=== PATIENT | female | born 1985 | race Hispanic/Latino ===

== ENCOUNTER 2017-10-19 16:29 | Outpatient (CLI) | payer SELFPAY ==
[2017-10-19 17:22] LABS: #Eosinphils 0.1 thou/uL (0.0-0.7); #Lymphocytes 2.7 thou/uL (1.20-3.40); #Monocytes 0.7 thou/uL (0.11-0.59); #Neutrophils 8.4 thou/uL (1.40-6.50); %Basophils 0.3 % (0.0-1.0); %Eosinophils 0.6 % (0.0-10.0); %Lymphocytes 22.5 % (21.0-51.0); %Monocytes 5.9 % (0.0-10.0); %Neutrophils 70.7 % (42.0-75.0); Hemoglobin 12.2 g/dL (12.0-16.0); Mean Corpuscular Hemoglobin 27.9 pg (27.0-31.0); Mean Corpuscular Volume 79.6 fL (78.0-98.0); Platelet Count 349 thou/uL (130-400); RBC Distribution Width 15.2 % (11.5-14.5); Red Blood Cell (RBC) Count 4.39 mill/uL (4.20-5.40); White Blood Cell (WBC) Count 11.8 thou/uL (4.8-10.8)
[2017-10-19 17:26] LABS: BHCG - Serum POSITIVE (NEGATIVE); Pregs Control Background? CLEAR/WHITE (CLR/WHITE); Pregs Control Bar Appear? YES (CONTROL BAR)
[2017-10-19 17:41] LABS: Anion Gap 12 mmol/L (10-20); BUN (Urea Nitrogen) 6 mg/dL (7.0-18.7); Calc. Creatinine Clearance 0 mL/min (70-130); Calcium 9.4 mg/dL (7.8-10.44); Carbon Dioxide 21 mmol/L (22-29); Chloride 105 mmol/L (98-107); Estimated GFR-MDRD Greater than 90; Glucose 71 mg/dL (70-105); Potassium 3.5 mmol/L (3.5-5.1); Sodium 134 mmol/L (136-145)
== END 2017-10-19 16:30 | disposition home or self-care (01) ==
LOC: LABBT 16:29
PROVIDERS: ATTEND Surgery
DX: Z01.812 Encounter for preprocedural laboratory examination (principal); N61.1 Abscess of the breast and nipple
CPT/HCPCS: 80048; 84703; 85025

== ENCOUNTER 2017-10-24 09:43 | Day surgery (SDC) | payer OTHER, SELFPAY ==
[2017-10-19 16:04] VITALS: BMI 43.9
[2017-10-24] MEDS ORDERED: Bupivacaine/Epinephrine 0.25% 30 ML VIAL ONE (11:30)
[2017-10-24] MEDS ORDERED: Fentanyl 250 MCG/5 ML VIAL ONE (11:49)
[2017-10-24] MEDS ORDERED: Midazolam HCl 2 mg/2 ml Vial ONE (11:49)
[2017-10-24] MEDS ORDERED: CEFAZOLIN/Water 2 GM/20 ML SYRINGE ONE (11:51)
[2017-10-24] MEDS ORDERED: PHENYLEPHRINE-NS 100 MCG/ML 10 ML SYRINGE ONE (13:33)
[2017-10-24] MEDS ORDERED: Succinylcholine Chloride 20 MG/ML 10 ml SYRINGE FS ONE (13:33)
[2017-10-24] MEDS ORDERED: PROPOFOL 200 MG/20 ML VIAL ONE (13:33)
[2017-10-24] MEDS ORDERED: Neomycin-Polymyxin 1 ML AMP ONE (14:42)
[2017-10-24] MEDS ORDERED: Promethazine HCl 25 MG/ML VIAL ONE (15:22)
--- NOTE | 2017-10-26 19:00 | PDOC.OP ---
Operative Note - Operative Note Operative Note: PROCEDURE: Incision and drainage and debridement of ensive right breast abscess DATE OF PROCEDURE:10/24/2017 SURGEON: Julita Love M.D. PREOPERATIVE DIAGNOSES: Extensive right breast abscess POSTOPERATIVE DIAGNOSIS: Extensive right breast abscess HISTORY: Patient is a 32-year-old woman with extensive right breast abscesswhich has undergone multiple I&D's and aspirations in the clinic without resolution. Recommendation was made to proceed to the operating room for incision and drainage and debridement under anesthesia. PROCEDURE IN DETAIL: After informed consent was obtained and appropriate preoperative antibiotics administered the patient was taken to the operating room she was placed in the supine position and anesthesia was administered. She was prepped and draped in a standard sterile fashion and a sterile ultrasound probe used to falguni the multiple fluid collections present within the right lateral and inferior breast. An incision was made over the lateral breast and a chronic abscess cavity encountered which was drained. There was granulomatous material which was debrided but no adela pus. This tracked inferiorly to a second fluid collection which was likewise opens. An infra-areolar incision was then made in proximity to 3 separate collections which were opened and debrided. The most firm and inflamed tissue was sent for biopsy to ensure that no underlying pathologic process was driving her persistent breast abscess, but it was felt that this was likely just indurated breast tissue due to chronic infection.the inferolateral fluid collection connected to the lateral area, and there were several fluid collections located inferiorly and medially and superiorly to the infra-areolar incision. The wound was copiously irrigated and hemostasis obtained using Bovie elautery. Additional local anesthesia was infused for postoperative pain control. Solitario drains were placed into each of the fluid collections, with a single drain placed between the lateral incision and the inferolateral collection exiting through each of the incisions. In total there were 4 drains placed and secured with sutures. A fresh dressing was placed and secured with tape. The patient was extubated and taken to the recovery roomd blood loss was minimal. There were no complications. Specimens are breast biopsies.
== END 2017-10-24 17:20 | disposition home or self-care (01) ==
LOC: SDC 09:43
PROVIDERS: ATTEND Surgery
PROC: 0H9T0ZX Drainage of Right Breast, Open Approach, Diagnostic (ICD-10-PCS; principal; 2017-10-24)
DX: N61.1 Abscess of the breast and nipple (principal); N60.31 Fibrosclerosis of right breast; Z79.82 Long term (current) use of aspirin; Z79.899 Other long term (current) drug therapy; Z98.890 Other specified postprocedural states
CPT/HCPCS: 88305; 96374; J2250; J2550; J2704; J3010

== ENCOUNTER 2017-12-25 10:32 | Day surgery (SDC) | payer OTHER, SELFPAY ==
[2017-12-25 12:08] VITALS: BMI 46.0
--- NOTE | 2017-12-25 12:44 | PDOC.LDHP ---
Labor and Delivery H&P Chief complaint: decreased movement HPI: 32 yo @ 33.1 by LMP c/w 8.2 week sono presents for evaluation of decreased movement. complicated by cholestasis of , chronic htn, h/o preeclampsia and chronic hypothyroidism. Pt reports decreased movement since last Monday. Reports baby is normally very active moving a couple hours at a time; however reports since Monday the baby has only been moving 30 minutes at a time. Currently reports FM. Denies vaginal bleeding, LOF , contractions and discharge. Pt is scheduled to have repeat c section @ 36 weeks 2/2 cholestasis of . She is currently taking ursodiol, aspirin, synthroid and PNV. Compliant with medications. ROS: Gen: denies fever, chills HEENT: Denies headache and changes in vision, reports rt ear fullness CV: Denies CP, worsening edema Respiratory: Denies SOB Abd: denies abdominal pain, [employer]: Denies bleeding, ctx, discharge OB: reports pos movement at the moment Current gestational age (weeks): 33 (+3) Dating criteria: last menstrual period, first trimester ultrasound Grav: 3 Para: 1 (1011) Current complications: hypertension, gestational hypertension, other ( cholestasis of ) Current medications: pre- vitamins, other (cholestasis of ) Previous surgical history: low tranverse CS, other (rt breast lumpectomy vs I&D) Allergies/Adverse Reactions: Allergies Allergy/AdvReac Type Severity Reaction Status Date / Time No Known Allergies Allergy Verified 12/25/17 11:54 Social history: none - Physical Exam Vital signs reviewed and normal: yes General: NAD, resting Heart: RRR Lungs: nonlabored breathing Abdomen: NTTP Extremeties: trace edema FHT: category 1 (reactive FHTs), variability present [place] contractions every: None - OB Labs Blood type: A RH: positive Antibody Screen: negative HIV: negative RPR: negative HEPSAg: negative 1 hour GCT: negative GBS: unknown Urine drug screen: not done - Assessment 1) Decreased movement: - pt is having weekly BPP NST performed and all have been wnl - currently reports good FM - will check BPP, FHTs are reactive 2) Cholestasis of : - cont current OP management - will obtain BPP and NST, f/u accordingly with results. - BPP 11/01 with reactive FHTs - Plan Plan: observation in L&D
--- NOTE | 2017-12-25 13:40 | ULT ---
SONOGRAPHIC BIOPHYSICAL PROFILE EXAM: History: Decreased movement. FINDINGS: Amniotic fluid index is 16.7. Good tone, gross movement, and breathing movement are demonstrate d. IMPRESSION: Sonographic biophysical profile score is 8/8. POS: SETH
--- NOTE | 2017-12-25 14:13 | PDOC.EVN ---
Event Note - Event Note Event Note: Reactive FHTs and 8/8 BPP with ANALILIA of 16. Pt instructed on kick counts. Stable for dc to home with close OP f/u at [facility].
== END 2017-12-25 14:37 | disposition home health service (06) ==
LOC: L&D/OP 10:32
PROVIDERS: ATTEND Obstetrics & Gynecology
DX: O36.8130 Decreased fetal movements, third trimester, not applicable or unspecified (principal); O26.613 Liver and biliary tract disorders in pregnancy, third trimester; K83.1 Obstruction of bile duct; O99.283 Endocrine, nutritional and metabolic diseases complicating pregnancy, third trimester; E03.9 Hypothyroidism, unspecified; O13.3 Gestational [pregnancy-induced] hypertension without significant proteinuria, third trimester; Z79.82 Long term (current) use of aspirin; Z79.899 Other long term (current) drug therapy; Z3A.33 33 weeks gestation of pregnancy
CPT/HCPCS: 76819; 99282